=== PATIENT | female | born 1990 | race Two or more races ===

== ENCOUNTER 2018-01-15 02:14 | Emergency (ER) | payer OTHER ==
[2018-01-15 02:17] VITALS: BP 129/63; PULSE 86; TEMP 98.2; BMI 26.4
--- NOTE | 2018-01-15 02:38 | PDOC ---
History of Present Illness - General Chief Complaint: Toothache Stated Complaint: TOOTHACHE Time Seen by Provider: 01/15/18 02:20 History Source: Patient Exam Limitations: No Limitations - History of Present Illness Initial Comments: 01/15/18 02:38 HISTORY OF PRESENT ILLNESS: This is a 27-year-old prima who is 19 weeks by previous ultrasound presents emergency Department with toothache status post tooth extraction on 01/10. Patient reports the pain came on suddenly today and rates the pain 10/10 and describes as a stabbing shooting pain. She denies fevers or chills. 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 No recent travel or sick contacts. PAST MEDICAL HISTORY: Denies past medical history SURGICAL HISTORY: Denies ALLERGIES: No known drug allergies REVIEW OF SYSTEMS General/Constitutional: Denies fever or chills. Denies weakness, weight change. HEENT: Denies change in vision. Denies ear pain or discharge. Denies sore throat. +toothache Cardiovascular: Denies chest pain or shortness of breath. Respiratory: Denies cough, wheezing, or hemoptysis. Gastrointestinal: Denies nausea, vomiting, diarrhea or constipation. Denies rectal bleeding. Genitourinary: Denies dysuria, frequency, or change in urination. Musculoskeletal: Denies joint or muscle swelling or pain. Denies neck or back pain. Skin and breasts: Denies rash or easy bruising. Neurologic: Denies headache, vertigo, loss of consciousness, or loss of sensation. Psychiatric: Denies depression or anxiety. Endocrine: Denies increased thirst. Denies abnormal weight change. Hematologic/Lymphatic: Denies anemia, easy bleeding, or history of blood clots. Allergic/Immunologic: Denies hives or skin allergy. Denies latex allergy. PHYSICAL EXAM General Appearance: Well-appearing, appropriately dressed. No apparent distress , no intoxication. HEENT: EOMI, PERRLA, normal ENT inspection, normal voice, TMs normal, pharynx normal. No conjunctival pallor. No photophobia, scleral icterus. Visualized bone at tooth extraction site of the left lower wisdom tooth. No foreign body present in extraction site. No palpable abscess to lingual or buccal surfaces of the gingiva. Neck: Supple. Trachea midline. No tenderness, rigidity, carotid bruit, stridor , lymphadenopathy, or thyromegaly. Respiratory/Chest: Lungs CTAB. No shortness of breath, chest tenderness, respiratory distress, accessory muscle use. No crackles, rales, rhonchi, stridor , wheezing, dullness Cardiovascular: RRR. S1, S2. No JVD, murmur, bradycardia, tachycardia. Vascular Pulses: Dorsalis-Pedis (R): 2+, Dorsalis-Pedis (L): 2+ Gastrointestinal/Abdominal: Normal bowel sounds. Gravid abdomen. No tenderness or rebound tenderness. No organomegaly, pulsatile mass, guarding, hernia, hepatomegaly, splenomegaly. Lymphatic: No adenopathy, tenderness. Musculoskeletal/Extremities: Normal inspection. FROM of all extremities, normal capillary refill. Pelvis Stable. No CVA tenderness. No tenderness to extremities, pedal edema, swelling, erythema or deformity. Integumentary: Appropriate color, dry, warm. No cyanosis, erythema, jaundice or rash Neurologic: reimbursement consultant II-XII intact. Fully oriented, alert. Appropriate mood/affect. Motor strength 5/5. No appreciable EOM palsy, facial droop or sensory deficit. Past History - Past Medical History Allergies/Adverse Reactions: Allergies Allergy/AdvReac Type Severity Reaction Status Date / Time No Known Allergies Allergy Verified 01/15/18 02:39 Home Medications: Ambulatory Orders Acetaminophen 500 mg PO PRN PRN 01/15/18 Oxycodone HCl/Acetaminophen [Percocet 5-325 mg Tablet] 1 tab PO Q6H PRN #5 tablet MDD 4 01/15/18 COPD: No - Suicide/Smoking/Psychosocial Hx Smoking History: Never smoked Have you smoked in the past 12 months: No Information on smoking cessation initiated: No Hx Alcohol Use: No Drug/Substance Use Hx: No Substance Use Type: None *Physical Exam - Vital Signs Last Vital Signs Temp Pulse Resp BP Pulse Ox 98.2 F 86 20 129/63 100 01/15/18 02:16 01/15/18 02:16 01/15/18 02:16 01/15/18 02:16 01/15/18 02:16 Medical Decision Making - Medical Decision Making 01/15/18 03:00 A/P: 27-year-old female with dry socket status post tooth extraction 01/10 Visualized bone at extraction site of the left mandibular wisdom tooth No foreign body present in extraction site This patient is I will defer analgesia and intervention at this time. I 'll give the patient 1 dose of Percocet here and a prescription for Percocet to get through the next 24 hours until she can see her OMFS. I discussed the physical exam findings, ancillary test results and final diagnoses with the patient. I answered all of the patient's questions. The patient was satisfied with the care received and felt comfortable with the discharge plan and treatment plan. The patient will call their primary care physician within 24 hours to arrange follow-up and will return to the Emergency Department with any new, persistent or worsening symptoms. *DC/Admit/Observation/Transfer Diagnosis at time of Disposition: Dry tooth socket - Discharge Dispostion Disposition: HOME Condition at time of disposition: Stable Decision to Admit order: No - Prescriptions Prescriptions: Oxycodone HCl/Acetaminophen [Percocet 5-325 mg Tablet] 1 tab PO Q6H PRN #5 tablet MDD 4 PRN Reason: Oral Pain/Mouth Sores - Referrals - Patient Instructions Additional Instructions: Take Percocet one tablet every 6 hours as needed for pain. See your surgeon Tuesday for reevaluation. You may try putting clove oil drops in your tooth extraction site as well as biting down on a used teabag to help with pain relief until your evaluation with your surgeon. - Post Discharge Activity
== END 2018-01-15 03:27 | disposition home or self-care (01) ==
LOC: JER 02:14
DX: O90.89 Other complications of the puerperium, not elsewhere classified (principal); M27.3 Alveolitis of jaws; K08.109 Complete loss of teeth, unspecified cause, unspecified class; Z3A.19 19 weeks gestation of pregnancy
CPT/HCPCS: 99282-25

== ENCOUNTER 2018-06-12 06:45 | Inpatient (IN) | payer OTHER ==
[2018-06-12 07:36] VITALS: BMI 29.8
[2018-06-12] MEDS ORDERED: CITRIC ACID/SODIUM CITRATE 30 ML UNIT-DOSE CUP PO ONE (07:56)
[2018-06-12] MEDS ORDERED: ELECTROLYTE-148 SOLN 1,000 ML IV SCH (08:00)
--- NOTE | 2018-06-12 08:02 | HP ---
Past Medical History - Admission Chief Complaint: PLTCS, Breech History of Present Illness: 28yo @ 39.0wks here for PLTCS for breech No complaints. No VB/LOF. +ctx but not felt. 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: Alzheimer's, CVA, Dementia, Migraine, Multiple Sclerosis, Peripheral Neuropathy, Parkinson's, Seizure, Syncope, TIA, Vertigo, Other Cardiovascular: No: AFIB, Aneurysm, Aortic Insufficiency, Aortic Stenosis, CAD, CHF, Deep Vein Thrombosis, HTN, Hyperlipdemia, CO, Mitral Insufficiency, Mitral Stenosis, Murmur, Pulmonary Hypertension, Other Pulmonary: No: Asthma, Bronchitis, Cancer, COPD, O2 Dependent, Pneumonia, Previously Intubated, Pulmonary Embolus, Pulmonary Fibrosis, Sleep Apnea, Other Gastrointestinal: No: Ascites, Cancer, Constipation, Crohn's Disease, Diverticulitis, Diverticulosis, Esophageal Varices, Gastritis, GERD, GI Bleed, Hemorrhoids, Hiatal Hernia, Inflamatory Bowel Disease, Irritable Bowel Disease, Pancreatitis, Peptic Ulcer Disease, Ulcerative Colitis, Other Hepatobiliary: No: Cirrhosis, Cholelithiasis, Cholecystitis, Choledocholithiasis , Hepatitis A, Hepatitis B, Hepatitis C, Other Renal/: No: Renal Failure, Renal Inusuff, BPH, Cancer, Hematuria, Hemodialysis , Neurogenic Bladder, Renal Calculi, UTI, Other ...: 1 ...Para: 0 ...Term: 0 ...: 0 ...Spon : 0 ...Induced : 0 ...Multiple Gestation: 0 ...LMP: 08/31/17 ... Weeks Gestation by Dates: 40.5 ...EDC by Dates: 06/07/18 ...EDC by Sono: 06/19/18 Heme/Onc: No: Anemia, B12 Deficiency, Bleeding Disorder, Cancer, Current Chemotherapy, Current Radiation Therapy, Hemochromatosis, Hypercoaguable State, Myeloproliferative Synd, Sickle Cell Disease, Sickle Cell Trait, Thrombocytopenia, Other Infectious Disease: No: AIDS, C-Diff, Herpes Zoster, HIV, MRSA, STD's, Tuberculosis, VREF, Other Psych: No: Addictions, Anxiety, Bipolar, Depression, Panic, Psychosis, Schizophrenia, Other Musculoskeletal: No: Bursitis, Chronic low back pain, Hemiparesis, Hemiplegia, Osteoarthritis, Paraplegia, Other - Past Surgical History Past Surgical History: Yes: None Hx Myomectomy: No Hx Transabdominal Cerclage: No - Smoking History Smoking history: Never smoked Have you smoked in the past 12 months: No - Alcohol/Substance Use Hx Alcohol Use: No - Social History Usual Living Arrangement: Yes: Alone History of Recent Travel: No Home Medications - Allergies Allergies/Adverse Reactions: Allergies Allergy/AdvReac Type Severity Reaction Status Date / Time No Known Allergies Allergy Verified 01/15/18 02:39 - Home Medications Home Medications: Ambulatory Orders Acetaminophen 500 mg PO PRN PRN 01/15/18 Oxycodone HCl/Acetaminophen [Percocet 5-325 mg Tablet] 1 tab PO Q6H PRN #5 tablet MDD 4 01/15/18 Physical Exam - Maternity Vital Signs: Vital Signs Temperature 98.2 F 06/12/18 07:26 Pulse Rate 77 06/12/18 07:26 Respiratory Rate 18 06/12/18 07:26 Blood Pressure 135/79 06/12/18 07:26 O2 Sat by Pulse Oximetry (%) Constitutional: Yes: Well Nourished, No Distress, Calm Eyes: Yes: WNL, Conjunctiva Clear, EOM Intact HENT: Yes: WNL, Atraumatic, Normocephalic - Abdominal Exam/OB Number of Fetuses: Single Presentation: Breech Contractions: Yes Regularity: Irregular Intensity: Unaware Monitor Mode: External Heart Rate Location: [facility] Category: I Accelerations: Non-Uniform Decelerations: None - Vaginal Exam/OB Vaginal Bleediing: No Amniotic Membrane Status: Intact Presentation: Jac Breech Assessment/Plan 28yo @ 39.0wks by sono here for PLTCS for breech Admit to L&D NPO, IVFs Labs done Bedside sono confirms breech presentation today Risk of procedure discussed including bleeding, infection, injury to bladder/ bowel/adnexa/vessels. All questions answered. Consent signed. Proceed to OR for Primary LTCS Gibran Pearson MD
[2018-06-12] MEDS ORDERED: ceFAZolin SODIUM 1 GM VIAL ONE (08:07)
[2018-06-12] MEDS ORDERED: morphine SULFATE/Preservative Free 0.5 MG/ML (1cc Syringe) ONE (08:07)
[2018-06-12] MEDS ORDERED: morphine SULFATE/Preservative Free 0.5 MG/ML (1cc Syringe) SPIN ONE (08:30)
[2018-06-12] MEDS ORDERED: ePHEDrine SULFATE 50 MG/1 ML AMPULE ONE (08:37)
[2018-06-12] MEDS ORDERED: OXYTOCIN 10 UNITS/ML VIAL ONE (08:39)
[2018-06-12] MEDS ORDERED: ONDANSETRON 4 MG/2 ML VIAL IVPUSH PRN (08:52)
[2018-06-12] MEDS ORDERED: oxyCODONE HCL 5 MG TABLET PO PRN (09:03)
[2018-06-12] MEDS ORDERED: METHYLERGONOVINE MALEATE 0.2 MG/1 ML AMP IM PRN (09:03)
[2018-06-12] MEDS ORDERED: IBUPROFEN 800 MG/8 ML IJ IVPB PRN (09:03)
[2018-06-12] MEDS ORDERED: IBUPROFEN 600 MG TABLET (FP) PO PRN (09:03)
--- NOTE | 2018-06-12 09:09 | OP ---
Operative Note - Note: Operative Date: 06/12/18 Pre-Operative Diagnosis: 39wk , Breech Operation: Primary Low Transverse Findings: VFI, Jac breech, Apgars 9/9. Weight pending. No nuchal/meconium. Normal tubes/ ovaries bilaterally Surgeon: Jody Pearson Superintendent Fish Hatchery: Beni Matthews Anesthesia: Spinal Estimated Blood Loss (mls): 600 Drains, Volume Out (mls): 100 Operative Report Dictated: Yes
[2018-06-12] MEDS: OXYTOCIN 20 UNITS in 0.9% NS 20 UNIT/1,000 ML INFUS.BAG IV SCH ×2 (10:05→19:24)
[2018-06-12] MEDS ORDERED: OXYTOCIN 20 UNITS in 0.9% NS 20 UNIT/1,000 ML INFUS.BAG IV ONE (10:18)
[2018-06-12] MEDS: PRENATAL VITAMINS W/ FOLIC ACID TABLET (FP) PO SCH (14:10)
--- NOTE | 2018-06-12 19:56 | OP ---
DATE OF OPERATION: 06/12/2018 PREOPERATIVE DIAGNOSIS: A 39-week , breech presentation. POSTOPERATIVE DIAGNOSIS: A 39-week , breech presentation. PROCEDURE: Primary low-transverse section. SURGEON: Jody Pearson MD AEROGRAPHER: MAITE Jarvis ANESTHESIA: Spinal. ESTIMATED BLOOD LOSS: 600. INTRAVENOUS FLUIDS: Per anesthesia record. URINE OUTPUT: Clear urine 100 mL at the end of the procedure. FINDINGS: Viable female infant, dain breech presentation, Apgars 5 and 8. Weight pending. No meconium. No nuchal. Normal tubes and ovaries bilaterally. COMPLICATIONS: None. CONDITION: Stable to recovery room. MCKENNA OF THE PROCEDURE: After the appropriate consents were signed and presentation was confirmed on bedside sonogram as persistent breech, patient was taken to the operating room. Spinal anesthesia was administered. She was placed in supine position. Trevino catheter had been inserted prior to entering the operating room. The abdomen was then prepped and draped in a normal sterile fashion. A timeout was performed, confirming correct patient and procedure. A Pfannenstiel skin incision was made and carried through to the underlying layers until the fascia was nicked with scalpel in the midline. The fascia was then extended laterally with the Eason scissors. The inferior aspect of the fascia was grasped with the Paul clamps, tented upwards, and the rectus muscles dissected off bluntly and with the Eason scissors. Attention was then paid to the superior aspect which was taken down in a similar fashion. The rectus muscles were then separately bluntly in the midline. The peritoneum was entered bluntly. The vesicouterine reflection was grasped with the pickups, tented upwards, and nicked in the midline with the Metzenbaum scissors and extended laterally with the Metzenbaum's. Bladder flap was then created digitally. The bladder blade was readjusted. The uterus was then incised in a low transverse fashion. The infant was noted to be in dain breech presentation. The legs were grasped and delivered through the hysterotomy. The was then delivered using the typical breech maneuvers without difficulty. No nuchal or meconium was noted. The cord was clamped and cut, and the infant was handed off to the pediatric staff. The uterus was then removed manually. The uterus was cleared of all clot and debris. The hysterotomy was closed in a single layer with a 1-0 Vicryl with good hemostasis. Gutters were cleared of all clot and debris. The rectus muscles were reapproximated with a 2-0 chromic. The fascia was closed with a 0 Vicryl. The subcutaneous tissue was closed with a 2-0 chromic. The skin was closed with a 4-0 Biosyn. Sponge, lap, and needle counts were correct x3. The patient received 2 g of Ancef at the start of the procedure. She was taken from the operating room to the recovery area in stable condition. MD MYAH BRASWELL/[id number] MTDD
--- NOTE | 2018-06-13 07:38 | PN ---
Post Progress Note - Subjective Subjective: 28 yo Para 1, status post primary , seen and evaluated. Doing well, no complaints. Post Day: 1 Type of Delivery: Primary C/S Vital Signs: Vital Signs Temperature 98.3 F 06/13/18 06:00 Pulse Rate 69 06/13/18 06:00 Respiratory Rate 20 06/13/18 06:00 Blood Pressure 92/45 L 06/13/18 06:00 O2 Sat by Pulse Oximetry (%) 100 06/12/18 10:00 Breast Exam: Yes: Soft Incision: Yes: Dressing dry and intact Abdomen/GI: Yes: Abdomen soft Lochia: Yes: Rubra Lochia, amount: Small Extremities: Yes: Calves non-tender Activity: Ambulating Problem List - Problems (1) Status post primary low transverse section Code(s): Z98.891 - HISTORY OF UTERINE SCAR FROM PREVIOUS SURGERY (2) Dry tooth socket Code(s): M27.3 - ALVEOLITIS OF JAWS Assessment/Plan Status post primary Ambulation Analgesia as needed Continue routine post op care
[2018-06-13] MEDS: ACETAMINOPHEN 325 MG TABLET (FP) PO PRN ×3 (07:40→21:40)
[2018-06-13] MEDS: SIMETHICONE 80 MG TAB.CHEW (FP) PO PRN ×3 (07:42→21:41)
[2018-06-13] MEDS ORDERED: BISACODYL 10 MG SUPP.RECT RC PRN (09:03)
[2018-06-13 09:23] LABS: BASO % 0.5 % (0-2.0); EOS % 0.2 % (0-4.5); HEMATOCRIT 32.9 % (32.4-45.2); HEMOGLOBIN 10.9 GM/dL (10.7-15.3); LYMPH % 8.1 % (8-40); MCH 28.1 pg (25.7-33.7); MCHC 33.2 g/dl (32.0-36.0); MEAN CELL VOLUME 84.6 fl (80-96); MEAN PLT VOLUME 7.4 fl (7.5-11.1); MONO % 5.5 % (3.8-10.2); NEUT % 85.7 % (42.8-82.8); PLATELET COUNT 270 K/MM3 (134-434); RBC 3.89 M/mm3 (3.60-5.2); RDW 14.5 % (11.6-15.6); WHITE BLOOD COUNT 12.9 K/mm3 (4.0-10.0)
[2018-06-13] MEDS: PRENATAL VITAMINS W/ FOLIC ACID TABLET (FP) PO SCH (10:28)
--- NOTE | 2018-06-13 11:20 | PN ---
Progress Note (short form) - Note Progress Note: Anesthesia POD#1 S/P under Spinal Anesthesia with Duramorph VSS,sitting in a chair,nausea went away this morning,pain is bearable, legs are strong. Doing well. Hanna Ospina MD.
[2018-06-13] MEDS: IBUPROFEN 600 MG TABLET (FP) PO PRN ×2 (14:09→21:40)
[2018-06-13] MEDS: SENNOSIDES/DOCUSATE COMBO (SENNA PLUS) TABLET (UD) PO PRN (21:41)
[2018-06-14 10:15] LABS: BASO % 0.3 % (0-2.0); EOS % 0.8 % (0-4.5); HEMATOCRIT 33.6 % (32.4-45.2); HEMOGLOBIN 11.1 GM/dL (10.7-15.3); LYMPH % 10.2 % (8-40); MCH 28.5 pg (25.7-33.7); MEAN CELL VOLUME 86.4 fl (80-96); MEAN PLT VOLUME 7.7 fl (7.5-11.1); MONO % 4.8 % (3.8-10.2); NEUT % 83.9 % (42.8-82.8); PLATELET COUNT 333 K/MM3 (134-434); RBC 3.89 M/mm3 (3.60-5.2)
--- NOTE | 2018-06-14 11:14 | PN ---
Progress Note (short form) - Note Progress Note: pod 2 ,s/p c/s doing well, no c/o , ambulating CBC, BMP 06/14/18 09:25 Last Vital Signs Temp Pulse Resp BP Pulse Ox 99.2 F 72 20 136/71 100 06/13/18 21:34 06/13/18 21:34 06/13/18 21:34 06/13/18 21:34 06/12/18 10:00 abdomen soft, no distension, no cva uterus firm incision dry, clean no calf tenderness plan ambulate . , observe
[2018-06-14] MEDS: PRENATAL VITAMINS W/ FOLIC ACID TABLET (FP) PO SCH (12:58)
[2018-06-14] MEDS: IBUPROFEN 600 MG TABLET (FP) PO PRN ×2 (17:00→22:37)
[2018-06-14] MEDS: SIMETHICONE 80 MG TAB.CHEW (FP) PO PRN ×2 (17:00→22:37)
[2018-06-14] MEDS: ACETAMINOPHEN 325 MG TABLET (FP) PO PRN ×2 (17:01→22:38)
[2018-06-14] MEDS: SENNOSIDES/DOCUSATE COMBO (SENNA PLUS) TABLET (UD) PO PRN (22:43)
--- NOTE | 2018-06-15 05:57 | PN ---
Post Progress Note Type of Delivery: Primary C/S Vital Signs: Vital Signs Temperature 98.8 F 06/14/18 21:51 Pulse Rate 88 06/14/18 21:51 Respiratory Rate 18 06/14/18 21:51 Blood Pressure 122/64 06/14/18 21:51 O2 Sat by Pulse Oximetry (%) 100 06/14/18 09:00 Uterus: Yes: Fundus below umbilicus Incision: Yes: Dressing dry and intact, Sutures intact Abdomen/GI: Yes: Abdomen soft Lochia: Yes: Rubra Lochia, amount: Small Extremities: Yes: Calves non-tender Perineum: Yes: Intact Activity: Ambulating - Labs Labs: CBC WBC 13.0 K/mm3 (4.0-10.0) H 06/14/18 09:25 RBC 3.89 M/mm3 (3.60-5.2) 06/14/18 09:25 Hgb 11.1 GM/dL (10.7-15.3) 06/14/18 09:25 Hct 33.6 % (32.4-45.2) 06/14/18 09:25 MCV 86.4 fl (80-96) 06/14/18 09:25 MCH 28.5 pg (25.7-33.7) 06/14/18 09:25 MCHC 33.0 g/dl (32.0-36.0) 06/14/18 09:25 RDW 15.0 % (11.6-15.6) 06/14/18 09:25 Plt Count 333 K/MM3 (134-434) D 06/14/18 09:25 MPV 7.7 fl (7.5-11.1) 06/14/18 09:25 Absolute Neuts (auto) 10.9 K/mm3 (1.5-8.0) H 06/14/18 09:25 Neutrophils % 83.9 % (42.8-82.8) H 06/14/18 09:25 Lymphocytes % 10.2 % (8-40) D 06/14/18 09:25 Monocytes % 4.8 % (3.8-10.2) 06/14/18 09:25 Eosinophils % 0.8 % (0-4.5) D 06/14/18 09:25 Basophils % 0.3 % (0-2.0) 06/14/18 09:25 Nucleated RBC % 0 % (0-0) 06/14/18 09:25 Assessment/Plan 28yo s/p PLTCS, POD#3 Damien PP care OOB, ambulate Labs reviewed Anticipate d/c to home by POD#4 Gibran Pearson MD
[2018-06-15 08:08] LABS: BASO % 0.5 % (0-2.0); EOS % 4.1 % (0-4.5); HEMATOCRIT 32.8 % (32.4-45.2); HEMOGLOBIN 10.6 GM/dL (10.7-15.3); LYMPH % 20.9 % (8-40); MCH 27.9 pg (25.7-33.7); MCHC 32.3 g/dl (32.0-36.0); MEAN CELL VOLUME 86.4 fl (80-96); MEAN PLT VOLUME 7.5 fl (7.5-11.1); MONO % 6.9 % (3.8-10.2); NEUT % 67.6 % (42.8-82.8); PLATELET COUNT 325 K/MM3 (134-434); RBC 3.79 M/mm3 (3.60-5.2); RDW 15.3 % (11.6-15.6); WHITE BLOOD COUNT 9.4 K/mm3 (4.0-10.0)
[2018-06-15] MEDS: PRENATAL VITAMINS W/ FOLIC ACID TABLET (FP) PO SCH (10:20)
[2018-06-15] MEDS: ACETAMINOPHEN 325 MG TABLET (FP) PO PRN ×2 (15:20→22:06)
[2018-06-15] MEDS: SIMETHICONE 80 MG TAB.CHEW (FP) PO PRN (15:20)
[2018-06-15] MEDS: IBUPROFEN 600 MG TABLET (FP) PO PRN ×2 (15:21→22:04)
[2018-06-15] MEDS: SENNOSIDES/DOCUSATE COMBO (SENNA PLUS) TABLET (UD) PO PRN (22:06)
--- NOTE | 2018-06-16 07:53 | DS ---
Physical Exam-PARTS CONTROL CLERK Vital Signs: Vital Signs Temperature 97.8 F 06/15/18 22:00 Pulse Rate 59 L 06/15/18 22:00 Respiratory Rate 18 06/15/18 22:00 Blood Pressure 121/71 06/15/18 22:00 O2 Sat by Pulse Oximetry (%) 100 06/14/18 09:00 Constitutional: Yes: Well Nourished, No Distress, Calm Eyes: Yes: WNL, Conjunctiva Clear, EOM Intact HENT: Yes: WNL, Atraumatic, Normocephalic Neck: Yes: WNL, Supple, Trachea Midline Cardiovascular: Yes: WNL, Regular Rate and Rhythm Respiratory: Yes: WNL, Regular, CTA Bilaterally Gastrointestinal: Yes: WNL ...Rectal Exam: Yes: WNL Renal/: Yes: WNL ....Post : Yes: Uterus firm, Uterus non-tender, Slight lochia rubra Breast(s): Yes: WNL Musculoskeletal: Yes: WNL Extremities: Yes: WNL Integumentary: Yes: WNL Wound/Incision: Yes: Clean/Dry, Well Approximated, Sutures Intact Neurological: Yes: WNL, Alert, Oriented ...Motor Strength: WNL Psychiatric: Yes: WNL, Alert, Oriented Labs: CBC, BMP 06/15/18 06:45 Delivery - Delivery Section: Low Flap Transverse Type of Anesthesia: Spinal Episiotomy/Laceration: None EBL (cc): 600 Delivery, Single - Stages of Labor Date of Delivery: 06/12/18 Time of Delivery: 08:41 Time Placenta Delivered: 08:42 Placenta: Yes: Expressed - Condition of Field Service Consultant/Burlap Roll Coverer Present: Yes Name: Annia Cedeno Infant Gender: Female Weight: 7 lb 7 oz Total Hours ROM (Hrs/Mins): 2min - 1 Minute Total Score: 7 5 Minutes Total Score: 8 - [place] Feeding Plan Initial Plan: Elected not to breastfeed exclusively throughout hospitalization Discharge Summary Reason For Visit: , SECTION Current Active Problems Status post primary low transverse section (Acute) Other Procedures: primary LST c/s Condition: Stable - Instructions Diet, Activity, Other Instructions: Regular Diet Referrals: Jody Pearson MD [Staff Physician] - Disposition: HOME - Home Medications Comprehensive Discharge Medication List: Ambulatory Orders Acetaminophen 500 mg PO PRN PRN 01/15/18 Oxycodone HCl/Acetaminophen [Percocet 5-325 mg Tablet] 1 tab PO Q6H PRN #5 tablet MDD 4 01/15/18 Ibuprofen [Motrin -] 600 mg PO QID PRN #28 tablet 06/14/18 Oxycodone HCl/Acetaminophen [Percocet 5-325 mg Tablet -] 1 - 2 tab PO Q6H PRN # 14 tab MDD 4 06/15/18
[2018-06-16 09:14] VITALS: BP 130/76; PULSE 65; TEMP 98.4
[2018-06-16] MEDS: PRENATAL VITAMINS W/ FOLIC ACID TABLET (FP) PO SCH (10:35)
--- NOTE | 2018-06-19 18:34 | PATH ---
Surgical Pathology Report Patient Name: MIRELLA CASTANO Med. Rec. #: [id number] /Age/Gender: 1990 (Age: 28) / F Account: [id number] Location: [facility] OBS/DIRECTOR EMERGENCY DEPARTMENT Taken: 06/12/2018 Received: 06/13/2018 Reported: 06/19/2018 Physicians: Jody Pearson Specimen(s) Received PLACENTA Clinical History , breech presentation Final Diagnosis PLACENTA, SECTION: 379 G THIRD TRIMESTER PLACENTA WITH TRIVASCULAR UMBILICAL CORD AND UNREMARKABLE PLACENTAL MEMBRANES. Electronically Signed Jennifer Garcia M.D. Gross Description The specimen is received fresh labeled placenta and is a 379 gram, 15.0 x 13.0 x 3.2 cm. placenta with attached membranes and umbilical cord. The attached membranes are hdz, translucent with focal opacities and insert marginally. The umbilical cord measures 34 cm. in length and averages 1.0 cm. in diameter. The cord inserts eccentrically, 2.5 cm. to the nearest margin. No true knots or strictures are identified. Cut surface of the umbilical cord reveals 3 vessels. The surface is givens blue with moderate fibrin deposition and appropriate caliber vessels. The maternal surface is red-brown with focal defects. Sectioning reveals red-brown, spongy parenchyma. No lesions are identified. Sifter Operator sections are submitted in three cassettes as follows: 1- membrane rolls and umbilical cord; 2-3- full thickness sections of placenta. /06/17/2018 saudi06/17/2018
== END 2018-06-16 13:30 | disposition home or self-care (01) | DRG 540 ==
LOC: JLDR 06:45 → J3W 10:35
PROVIDERS: ADMIT Obstetrics & Gynecology; ATTEND Obstetrics & Gynecology
PROC: 10D00Z1 Extraction of Products of Conception, Low, Open Approach (ICD-10-PCS; principal; 2018-06-12)
DX: O32.1XX0 Maternal care for breech presentation, not applicable or unspecified (principal); O26.893 Other specified pregnancy related conditions, third trimester; M27.3 Alveolitis of jaws; Z3A.39 39 weeks gestation of pregnancy; Z37.0 Single live birth
CPT/HCPCS: 36415; 85025; 88307-TC; 94010